=== PATIENT | female | born 1970 | race Caucasian/White ===

== ENCOUNTER 2021-11-02 23:30 | Inpatient (IN) | payer MEDICARE, OTHER ==
[~2021-11-02] VITALS: Ht 165.1 cm; Wt 97.5 kg
[2021-11-03] MEDS ORDERED: ACETAMINOPHEN 325 MG TABLET PO PRN
[2021-11-03] MEDS ORDERED: BLOOD SUGAR DIAGNOSTIC 1 EACH STRIP IN ONE
[2021-11-03] MEDS ORDERED: MAGNESIUM HYDROXIDE 30 ML UDC PO PRN
[2021-11-03] MEDS ORDERED: TEMAZEPAM 7.5 MG CAPSULE PO PRN
[2021-11-03] MEDS ORDERED: MAG HYDROX/AL HYDROX/SIMETH 30 ML UDC PO PRN
[2021-11-03 01:17] VITALS: BP 123/78
--- NOTE | 2021-11-03 01:38 | NUR ---
RN NOTES :REFUSED SKIN ASSESSMENT PT. REFUSED FULL BODY ,SKIN ASSESSMENT AND PHOTOS TAKEN, ENCOURAGED X3 RISKS AND BENEFITS EXPLAINED, PER PT.MY SKIN IS FINE AND I AM FEELING IRRITABLE , TIRED, LET ME SLEEP.
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
[2021-11-03] MEDS ORDERED: RISP0.5T65 PO (02:15)
--- NOTE | 2021-11-03 06:22 | NUR ---
RN NOTES: CALLED PT. SISTER TARYN MENESES AND LEFT MESSAGES ABOUT PT. ADMIT IN SOH / GPS AT [phone] , PER PT. CALL MY SISTER TARYN.
[2021-11-03 06:36] VITALS: BP 123/74
--- NOTE | 2021-11-03 06:57 | NUR ---
RN NOTES : PT. REFUSED TO PUT HER JEWLLERY IN SAFE , EXPLINED TO THE PATIENT IS OWN RESPONSIBLE FOR HER JEWLLERY , WITH PATIENT 1 PAIRS OF YELLOW / STONES EAR RINGS , 1 NOSE PIN , 2 RINGS YELLOW/ STONES. PT. REFUSED TO WEARS HOSPITAL GOWNS , AND PT. PREFER TO WEAR ON HER CLOTHS .
[2021-11-03 07:24] LABS: NEUTROPHILS % (AUTO) 60.1 % (43.0-81.0)
[2021-11-03 08:00] VITALS: BP 105/63
[2021-11-03 08:30] LABS: ALBUMIN 3.8 g/dL (3.4-5.0); BILIRUBIN,TOTAL 1.3 mg/dL (0.2-1.0); CALCIUM, SERUM 9.4 mg/dL (8.5-10.1); CREATININE 0.6 mg/dL (0.6-1.3); POTASSIUM 2.9 mmol/L (3.5-5.1); TOTAL PROTEIN, SERUM 7.4 g/dL (6.4-8.2)
[2021-11-03] MEDS ORDERED: POTASSIUM CHLORIDE 20 MEQ TAB.PRT.SR PO ONE (10:00)
[2021-11-03] MEDS: LORAZEPAM 0.5 MG TABLET PO PRN (12:02)
--- NOTE | 2021-11-03 12:03 | NUR ---
pt c/o anxiety medicated with ativan 1mg x1 will continue to monitor .
[2021-11-03 16:03] VITALS: BP 110/66
[2021-11-03 20:22] VITALS: BP 100/60
[2021-11-03 22:29] LABS: BASOPHILS # (AUTO) 0.1 K/uL (0.0-0.2); BASOPHILS % (AUTO) 0.6 % (0.0-2.0); EOSINOPHILS % (AUTO) 3.6 % (0.0-6.0); HEMATOCRIT 47 % (33-45); HEMOGLOBIN 15.3 g/dL (11.5-14.8); LYMPHOCYTES # (AUTO) 2.4 K/uL (0.8-4.8); LYMPHOCYTES % (AUTO) 26.7 % (20.0-44.0); MEAN CORPUSCULAR HGB CONC 33 g/dl (31.0-36.0); MEAN CORPUSCULAR VOLUME 82 fL (82-100); MONOCYTES # (AUTO) 0.8 K/uL (0.1-1.30); NEUTROPHILS # (AUTO) 5.4 K/uL (1.8-8.9); PLATELET COUNT (AUTO) 273 K/uL (150-450); RED BLOOD CELL COUNT(AUTO) 5.69 MIL/uL (4.0-5.2)
[2021-11-04 07:09] LABS: BASOPHILS % (AUTO) 0.3 % (0.0-2.0); EOSINOPHILS % (AUTO) 3.5 % (0.0-6.0); HEMATOCRIT 46 % (33-45); HEMOGLOBIN 15.6 g/dL (11.5-14.8); LYMPHOCYTES # (AUTO) 1.8 K/uL (0.8-4.8); LYMPHOCYTES % (AUTO) 26.1 % (20.0-44.0); MEAN CORPUSCULAR HGB CONC 34 g/dl (31.0-36.0); MEAN CORPUSCULAR VOLUME 81 fL (82-100); MONOCYTES # (AUTO) 0.6 K/uL (0.1-1.30); MONOCYTES % (AUTO) 8.3 % (2.0-12.0); NEUTROPHILS # (AUTO) 4.4 K/uL (1.8-8.9); NEUTROPHILS % (AUTO) 61.8 % (43.0-81.0); PLATELET COUNT (AUTO) 262 K/uL (150-450); RED BLOOD CELL COUNT(AUTO) 5.73 MIL/uL (4.0-5.2); WHITE BLOOD COUNT (AUTO) 7.1 K/uL (4.3-11.0)
[2021-11-04 07:20] LABS: CALCIUM, SERUM 9.8 mg/dL (8.5-10.1); CREATININE 0.6 mg/dL (0.6-1.3); POTASSIUM 3.4 mmol/L (3.5-5.1)
[2021-11-04 08:00] VITALS: BP 127/90
[2021-11-04] MEDS: risperiDONE 1 MG TABLET PO SCH ×4 (08:00→21:31)
[2021-11-04] MEDS: DIVALPROEX SODIUM 250 MG TABLET.DR PO SCH ×3 (08:24→17:11)
[2021-11-04] MEDS ORDERED: POTASSIUM CHLORIDE 20 MEQ TAB.PRT.SR PO SCH (12:00)
[2021-11-04] MEDS: LORAZEPAM 0.5 MG TABLET PO PRN (15:28)
--- NOTE | 2021-11-04 15:29 | NUR ---
RN-CO: ATIVAN PO GIVEN FOR ANXIETY M/B RESTLESSNESS.
[2021-11-04 16:00] VITALS: BP 114/71
--- NOTE | 2021-11-04 19:20 | NUR ---
GPS RN NOTES RECEIVED PATIENT IN BED RESTING COMFORTABLY. ALERT AND ORIENTED X2. NO S/S OF ACUTE DISTRESS NOTED. PATIENT IS COOPERATIVE TO CARE, ANXIOUS AT TIMES, WITHDRAWN AND LABILE MOOD. ENCOURAGED TO VERBALIZE FEELINGS AND MOTIVATED TO ATTEND IN GROUP ACTIVITY. NO VERBALIZATION OF THOUGHTS AND FEELINGS. SAFETY PRECAUTIONS MAINTAINED. WILL CONTINUE TO MONITOR Q15MIN ROUNDS FOR SAFETY AND BEHAVIOR.
[2021-11-04 19:52] VITALS: BP 133/69
[2021-11-04] MEDS ORDERED: risperiDONE 1 MG TABLET ONE (21:27)
--- NOTE | 2021-11-04 21:31 | NUR ---
GPS RN NOTES RISPERDAL 1MG WAS GIVEN AT 2130. DRUG NOT AVAILABLE IN THE UNIT. CHARGE NURSE FROM [address] [place] [address] OVERRIDE THIS MEDICATION. ADMINISTRATIVE OFFICE CLERK MUMTAZ MADE AWARE.
[2021-11-05 08:00] VITALS: BP 100/57
[2021-11-05] MEDS: DIVALPROEX SODIUM 250 MG TABLET.DR PO SCH ×4 (08:59→17:00)
[2021-11-05] MEDS: risperiDONE 1 MG TABLET PO SCH ×2 (08:59→19:49)
--- NOTE | 2021-11-05 09:38 | NUR ---
CHERIE Initial Discharge Note: Patient has been living with her sister Amelia ([phone]) located at [address] [place] [address]; ([phone]). Pt will be returning back to her sister's house when stable. CHERIE contacted pt's sister Amelia ([phone]) to notify of pt's admission and to discuss treatment and discharge plan. Amelia stated pt has been living with her and will be returning back home stable.
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
--- NOTE | 2021-11-05 09:39 | NUR ---
CHERIE Family Contact: SW contacted pt's sister Amelia ([phone]) to notify of pt's admission and to discuss treatment and discharge plan. Amelia stated pt has been living with her and will be returning back home stable.
--- NOTE | 2021-11-05 10:00 | NUR ---
Treatment Plan: Pt refused to sign treatment plan and was suspicious.
--- NOTE | 2021-11-05 10:01 | NUR ---
Social Work Note/Substance Abuse Intervention: Patient was provided with a brief substance abuse intervention and referred to [facility] ([phone]), [facility] ([phone]), and [facility] ([phone]) for smoking cigarettes and having a past of using meth.
[2021-11-05 16:00] VITALS: BP 107/63
--- NOTE | 2021-11-05 19:20 | NUR ---
GPS RN NOTES RECEIVED PATIENT IN BED RESTING COMFORTABLY. ALERT AND ORIENTED X2-3. NO S/S OF ACUTE DISTRESS NOTED. PATIENT IS COOPERATIVE TO CARE, ANXIOUS, WITH EPISODE OF CRYING WANTED TO GO HOME. ENCOURAGED TO VERBALIZE FEELINGS AND MOTIVATED TO ATTEND IN GROUP ACTIVITIES. SAFETY PRECAUTIONS MAINTAINED. WILL CONTINUE TO MONITOR Q15MIN ROUNDS FOR SAFETY AND BEHAVIOR.
[2021-11-05 19:52] VITALS: BP 102/68
[2021-11-06] MEDS: LORAZEPAM 0.5 MG TABLET PO PRN ×2 (02:29→17:33)
[2021-11-06 08:00] VITALS: BP 108/60
[2021-11-06] MEDS: DIVALPROEX SODIUM 250 MG TABLET.DR PO SCH ×3 (08:08→16:36)
[2021-11-06] MEDS: risperiDONE 1 MG TABLET PO SCH ×2 (08:08→20:47)
--- NOTE | 2021-11-06 09:05 | NUR ---
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
[2021-11-06 16:00] VITALS: BP 108/55
--- NOTE | 2021-11-06 16:48 | NUR ---
RN-NOTES PATIENT IS VISIBLE IN THE UNIT A/O X2,CALM AND COOPERATIVE WITH CARE AND WITH STAFF. COMPLIANT WITH MEDICATIONS. ABLE TO VERBALIZE FEELINGS AND CONCERN TO THE STAFF AMBULATORY STEADY GAIT.ALL NEEDS ATTENDED AND ANTICIPATED.WILL CONT. MONITORING FOR SAFETY AND BEHAVIOR. ENDORSE TO INCOMING SHIFT.
--- NOTE | 2021-11-06 17:35 | NUR ---
RN-NOTES PATIENT STATED" I NEED ATIVAN FOR MY ANXIETY". ATIVAN 1MG P.O GIVEN PRN ORDER. WILL CONT. MONITORING FOR SAFETY AND BEHAVIOR.
[2021-11-06 20:00] VITALS: BP 110/67
--- NOTE | 2021-11-06 20:45 | NUR ---
GPS RN NOTE PT FALL ASLEEP, NO DISTRESS NOTED.
--- NOTE | 2021-11-06 20:45 | NUR ---
GPS RN NOTE PT UNABLE TO SLEEP, ASKING FOR SLEEPING MED. RESTORIL 15 GM PO GIVEN. CONTINUE TO MONITOR.
--- NOTE | 2021-11-07 07:46 | NUR ---
SW Discharge Note: Patient has been living with her sister Amelia ([phone]) located at [address] [place] [address]; ([phone]) and will be returning back. Pts sister Amelia ([phone]) will garbage pick up worker pt at between 7-8PM. Pt is happy to be going back home. Pt denies suicidal or homicidal ideation. Pt denies visual/auditory hallucinations. Pt will follow up with primary doctor, Dr. Jaime Ryan located at [address], [place] [address]; ([phone]). Pt will follow up with psychiatrist, Dr. Montoya located at [address], [place] [address]; ([phone]). Pt presents with euthymic mood and congruent affect.
[2021-11-07 08:00] VITALS: BP 99/70
[2021-11-07] MEDS: DIVALPROEX SODIUM 250 MG TABLET.DR PO SCH ×2 (08:08→12:05)
[2021-11-07] MEDS: risperiDONE 1 MG TABLET PO SCH (08:08)
--- NOTE | 2021-11-07 08:49 | NUR ---
Dr. Meza gave an order to d/c hold and d/c home and to follow up with psych and primary doctors. Psychiatrist provided a prescriptions and Dr. Montana made aware of the discharge and reconciled meds to continue at home. Pt. without distress, denies suicidal and homicidal. Belongings ready and discharge papers ready. Pt. will be picked up by grand daughter Mylene.
--- NOTE | 2021-11-07 09:44 | NUR ---
SW Note: SW offered pt resources such as a nursing facility or assisted livings pt refused and did not want these resources.
--- NOTE | 2021-11-07 12:20 | NUR ---
Pt. left the unit via a wheelchair and wheeled by staff to the [facility]. Left without distress, v/s taken: BP 110/55, MD 87, RR 18, temp. 07.9 and oxygen sat 97%. Pt. was picked by her niece Mylene Arechiga via a private car. Addendum: 11/07/21 at 1713 by ANTHONY SAM RN Pt. was instructed on meds to continue at home and verbalizes understanding and advised to make a follow up with psych and medical doctors and agreed.
== END 2021-11-07 12:20 | disposition home or self-care (01) | DRG 885 ==
LOC: GPS 23:30
PROVIDERS: ADMIT Psychiatry & Neurology Psychiatry; ATTEND Internal Medicine
DX: F31.64 Bipolar disorder, current episode mixed, severe, with psychotic features (principal); F41.9 Anxiety disorder, unspecified; Z73.6 Limitation of activities due to disability; R26.89 Other abnormalities of gait and mobility; M62.81 Muscle weakness (generalized); M16.10 Unilateral primary osteoarthritis, unspecified hip; G89.29 Other chronic pain; G31.84 Mild cognitive impairment of uncertain or unknown etiology
CPT/HCPCS: 36415; 80048-TC; 80053-TC; 80061-TC; 80164-TC; 85025-TC; 87081-TC